=== PATIENT | male | born 1970 | race Caucasian/White ===

== ENCOUNTER 2021-05-26 08:25 | Observation (INO) ==
[2021-05-26] MEDS ORDERED: *HR* Dextrose 50 % in Water (Syg) 50 ML SYRINGE IVP ONE (08:39)
[2021-05-26] MEDS ORDERED: *HR* Dextrose 50 % in Water (Syg) 50 ML SYRINGE ONE (08:40)
[2021-05-26 09:01] LABS: Basophils # 0.1 K/mcL (0.0-0.2); Basophils % 0.5 %; Eosinophils % 0.3 %; Hematocrit 50.9 % (37.5-50.1); Immature Granulocytes % 0.3 % (0-4); Lymphocytes % 21.4 %; Mean Corpuscular HGB Conc 29.5 g/dL (31.6-35.5); Mean Corpuscular Volume 84.8 fL (83.0-100.0); Mean Platelet Volume 11.1 fL (9.4-12.4); Monocytes # 0.6 K/mcL (0.0-1.3); Neutrophils # 6.5 K/mcL (1.6-8.9); Nucleated Red Blood Cells 2.4 /100 WBC (0); Platelet Count 365 K/mcL (140-400); Red Cell Distribution Width 22.6 % (11.5-14.5); Segmented Neutrophils % 70.5 %; White Blood Count 9.2 K/mcL (4.3-11.1)
[2021-05-26 09:09] LABS: INR 3.5; Prothrombin Time 38.2 Seconds (9.4-12.1)
[2021-05-26 09:12] LABS: Activated Partial Thrombo Time 39.1 Seconds (26.0-36.0)
[2021-05-26 09:20] LABS: Alanine Aminotransferase 9 Units/L (7-52); Albumin 3.2 g/dL (3.5-5.7); Albumin/Globulin Ratio 0.6 (1.1-2.2); Alkaline Phosphatase 116 Units/L (34-104); Aspartate Amino Transferase 20 Units/L (13-39); BUN/Creatinine Ratio 9 (6-26); Bilirubin,Direct 0.7 mg/dL (0.0-0.2); Bilirubin,Indirect 1.4 mg/dL (0.0-1.0); Bilirubin,Total 2.1 mg/dL (0.3-1.0); Blood Urea Nitrogen 9 mg/dL (6-20); Calcium 9.4 mg/dL (8.6-10.3); Carbon Dioxide 35 mEq/L (23-29); Chloride 95 mEq/L (98-107); Ethanol < 10 mg/dL (Less than 10); Globulin 5.1 g/dL (2.4-3.5); Glucose 58 mg/dL (70-105); Osmolality,Calculated 282 (280-300); Potassium 3.2 mEq/L (3.5-5.1); Sodium 138 mEq/L (136-145); Total Protein 8.3 g/dL (6.4-8.9); Troponin I < 0.03 ng/mL (< 0.04); eGFR For African Americans > 60 (> 60); eGFR For Non-African Americans > 60 (> 60)
[2021-05-26] MEDS: Naloxone 0.4 MG/ML INJ IVP ONE ×2 (09:37→09:49)
[2021-05-26] MEDS ORDERED: Naloxone 0.4 MG/ML INJ IVP ONE (09:47)
[2021-05-26] MEDS ORDERED: Naloxone 0.4 MG/ML INJ ONE (09:48)
[2021-05-26] MEDS ORDERED: *HR* LORazepam 2 MG/ML VIAL ONE (10:00)
[2021-05-26] MEDS ORDERED: *HR* LORazepam 2 MG/ML VIAL IVP ONE (10:00)
[2021-05-26 10:59] LABS: ABG Base Excess 9 mEq/L (-2 to 3); ABG HCO3 32 mEq/L (21-27); ABG Oxygen Saturation 93 % (95-98); ABG PCO2 37 mmHg (35-45); ABG PH 7.54 pH Units (7.32-7.45); ABG PO2 58 mmHg (85-104); ABG TCO2 33 mEq/L (20-26)
[2021-05-26] MEDS ORDERED: Naloxone 0.4 MG/ML INJ IVP PRN (11:24)
[2021-05-26 12:14] LABS: Bilirubin,Urine Negative (Negative); Blood,Urine Moderate (Negative); Clarity,Urine Clear (Clear); Color,Urine Yellow (Yellow); Glucose,Urine (UA) Normal (Normal); Ketones,Urine Negative (Negative); Leukocyte Esterase,Urine Negative (Negative); Nitrite,Urine Negative (Negative); Protein,Urine Negative (Neg-Trace)
[2021-05-26 12:21] LABS: Bacteria,Urine Few per hpf (None-Few); Mucus,Urine Few per lpf (None-Few); RBC,Urine 15-30 per hpf (0-3); WBC,Urine 0-3 per hpf (0-3)
[2021-05-26 12:35] LABS: Amphetamine Screen,Urine Negative ng/mL (Cutoff=1000); Barbiturate Screen,Urine Negative ng/mL (Cutoff=200); Benzodiazepines Screen,Urine Positive ng/mL (Cutoff=200); Cannabinoid Screen,Urine Negative ng/mL (Cutoff = 50); Cocaine Screen,Urine Negative ng/mL (Cutoff= 300); Opiate Screen,Urine Negative ng/mL (Cutoff=300); Phencyclidine Screen,Urine Negative ng/mL (Cutoff=25)
[2021-05-26] MEDS ORDERED: Promethazine Syrup 6.25 MG/5 ML PO PRN (12:58)
[2021-05-26] MEDS ORDERED: MAXALT 10 MG PO PRN (12:58)
[2021-05-26] MEDS ORDERED: ALPRAZolam 1 MG TABLET PO PRN (12:58)
[2021-05-26] MEDS ORDERED: Dextrose Gel 15 GM/37.5 ML TUBE PO PRN ×2 (13:00)
[2021-05-26] MEDS ORDERED: D5% in Water 1,000 ML IVC PRN (13:00)
[2021-05-26] MEDS ORDERED: *HR* Dextrose 50 % in Water (Syg) 50 ML SYRINGE IVP PRN (13:00)
[2021-05-26] MEDS: Lactulose Oral Soln 20 GM/30 ML UDC PO SCH ×2 (14:22→20:38)
[2021-05-26] MEDS: Pregabalin 50 MG CAPSULE PO SCH ×2 (14:22→20:38)
[2021-05-26] MEDS: Insulin LISPRO 300 UNITS/3 ML VIAL SUBQ SCH (16:20)
[2021-05-26] MEDS ORDERED: Furosemide 40 MG TABLET PO SCH (17:00)
[2021-05-26] MEDS ORDERED: *HR* Promethazine 25 MG/ML VIAL IM PRN (20:16)
[2021-05-26] MEDS ORDERED: *HR* Metoprolol 5 MG/5 ML VIAL IVP PRN (20:20)
[2021-05-26] MEDS: Apixaban 5 MG TABLET PO SCH (20:37)
[2021-05-26] MEDS ORDERED: levETIRAcetam 500 MG/5 ML UDC PO SCH (21:00)
[2021-05-26] MEDS ORDERED: Insulin NPH 100 UNIT/ML (x5UNIT) SUBQ SCH (21:00)
[2021-05-26] MEDS ORDERED: Insulin LISPRO 300 UNITS/3 ML VIAL SUBQ SCH (21:00)
[2021-05-26] MEDS ORDERED: lisinopriL 5 MG TABLET PO SCH (21:00)
[2021-05-26] MEDS: Furosemide 40 MG/4 ML VIAL IVP SCH (21:10)
[2021-05-26 23:07] LABS: BUN/Creatinine Ratio 10 (6-26); Blood Urea Nitrogen 8 mg/dL (6-20); Calcium 8.2 mg/dL (8.6-10.3); Carbon Dioxide 22 mEq/L (23-29); Chloride 99 mEq/L (98-107); Glucose 81 mg/dL (70-105); Osmolality,Calculated 279 (280-300); Potassium 4.4 mEq/L (3.5-5.1); Sodium 136 mEq/L (136-145); eGFR For African Americans > 60 (> 60); eGFR For Non-African Americans > 60 (> 60)
[2021-05-27 04:02] VITALS: TEMP 98.2
[2021-05-27 04:36] LABS: Basophils # 0.1 K/mcL (0.0-0.2); Basophils % 0.9 %; Eosinophils # 0.1 K/mcL (0.0-0.6); Eosinophils % 1.2 %; Hemoglobin 13.3 g/dL (12.9-16.9); Immature Granulocytes % 0.5 % (0-4); Immature Platelets 9.8 % (1.1-6.1); Lymphocytes # 3.1 K/mcL (0.6-4.6); Lymphocytes % 37.5 %; Mean Corpuscular HGB Conc 29.6 g/dL (31.6-35.5); Mean Corpuscular Hemoglobin 24.7 pg (28.0-33.3); Mean Corpuscular Volume 83.5 fL (83.0-100.0); Mean Platelet Volume 11.3 fL (9.4-12.4); Monocytes # 0.9 K/mcL (0.0-1.3); Monocytes % 10.8 %; Nucleated Red Blood Cells 2.4 /100 WBC (0); Platelet Count 320 K/mcL (140-400); Red Blood Count 5.39 M/mcL (4.19-5.50); Red Cell Distribution Width 22.6 % (11.5-14.5); Segmented Neutrophils % 49.1 %; White Blood Count 8.2 K/mcL (4.3-11.1)
[2021-05-27 04:52] LABS: BUN/Creatinine Ratio 11 (6-26); Blood Urea Nitrogen 9 mg/dL (6-20); Calcium 8.2 mg/dL (8.6-10.3); Carbon Dioxide 35 mEq/L (23-29); Chloride 97 mEq/L (98-107); Glucose 76 mg/dL (70-105); Osmolality,Calculated 287 (280-300); Potassium 3.4 mEq/L (3.5-5.1); Sodium 140 mEq/L (136-145); eGFR For African Americans > 60 (> 60); eGFR For Non-African Americans > 60 (> 60)
[2021-05-27] MEDS: Insulin LISPRO 300 UNITS/3 ML VIAL SUBQ SCH ×2 (08:22→12:21)
[2021-05-27] MEDS: Apixaban 5 MG TABLET PO SCH (08:22)
[2021-05-27] MEDS: Lactulose Oral Soln 20 GM/30 ML UDC PO SCH (08:23)
[2021-05-27] MEDS: Pregabalin 50 MG CAPSULE PO SCH (08:23)
[2021-05-27] MEDS: Furosemide 40 MG/4 ML VIAL IVP SCH (08:27)
[2021-05-27] MEDS ORDERED: Pantoprazole 40 MG VIAL IVP SCH (09:00)
[2021-05-27] MEDS ORDERED: Insulin NPH 100 UNIT/ML (x5UNIT) SUBQ SCH (09:00)
[2021-05-27] MEDS ORDERED: Metoprolol XL (24 HR) Succ 50 MG TAB.ER.24H PO SCH (09:00)
[2021-05-27] MEDS ORDERED: Naloxone 2 MG in 0.9 % Sodium Chloride 500 ML IVC SCH (09:15)
[2021-05-27 15:30] VITALS: BP 124/79; PULSE 93; O2SAT 91
== END 2021-05-27 15:51 | disposition left against medical advice (07) ==
LOC: EMEROOARM 08:25 → 3ANU 08:25 → 2NNU 12:11
PROVIDERS: ADMIT Hospitalist; ATTEND Hospitalist